=== PATIENT | female | born 1945 | race African-American/Black ===

== ENCOUNTER 2022-07-02 13:16 | Inpatient (IN) | payer OTHER ==
[2022-07-02 14:42] VITALS: BMI 24.3
[2022-07-02] MEDS ORDERED: POLYETHYLENE GLYCOL (HEALTHYLAX) 3350 17 GM PACKET PO PRN (15:37)
[2022-07-02] MEDS ORDERED: BENZONATATE 200 MG CAPSULE PO PRN (15:37)
[2022-07-02] MEDS ORDERED: BENZOCAINE/MENTHOL (CHLORASEPTIC ) LOZENGE MM PRN (15:37)
[2022-07-02] MEDS ORDERED: AMMONIUM LACTATE 12% LOTION 225 GM BOTTLE TP PRN (15:37)
[2022-07-02] MEDS ORDERED: IBUPROFEN 400 MG TABLET (FP) PO PRN (15:37)
[2022-07-02] MEDS ORDERED: NALOXONE HCL (KLOXXADO) 8 MG SPRAY NS PRN (15:37)
[2022-07-02] MEDS ORDERED: MAGNESIUM HYDROX 2400MG/30ML ORAL SUSPENSION 30 ML CUP PO PRN (15:37)
[2022-07-02] MEDS ORDERED: COLLOIDAL OATMEAL 1 BAR EACH TP PRN (15:37)
[2022-07-02] MEDS ORDERED: NICOTINE POLACRILEX 2 MG GUM BUC PRN (15:37)
[2022-07-02] MEDS ORDERED: LOPERAMIDE HCL 2 MG CAPSULE PO PRN (15:37)
[2022-07-02] MEDS ORDERED: MAG HYDROX/AL HYDROX/SIMETH 30 ML UNIT-DOSE CUP PO PRN (15:37)
[2022-07-02] MEDS ORDERED: BISMUTH SUBSALICYLATE 524 MG/30 ML PO PRN (15:37)
[2022-07-02] MEDS ORDERED: NALOXONE HCL 0.4 MG/ML VIAL IM PRN (15:37)
[2022-07-02] MEDS ORDERED: ONDANSETRON *ODT* 4 MG TABLET SL PRN (15:37)
[2022-07-02] MEDS ORDERED: guaiFENesin 600 MG TABLET.ER (FP) PO PRN (15:37)
[2022-07-02] MEDS ORDERED: DICYCLOMINE HCL 10 MG CAPSULE PO PRN (15:37)
[2022-07-02] MEDS ORDERED: NICOTINE 10 MG CARTRIDGE (INHALER) IH PRN (15:37)
[2022-07-02] MEDS ORDERED: IBUPROFEN 600 MG TABLET (FP) PO PRN (15:37)
[2022-07-02] MEDS ORDERED: NICOTINE 14 MG/24 HOURS TOPICAL PATCH TD SCH (15:45)
[2022-07-02] MEDS ORDERED: LORazepam 2 MG TABLET ONE (16:53)
[2022-07-02] MEDS: LORazepam 2 MG TABLET PO SCH ×2 (16:55→22:52)
[2022-07-02] MEDS: MELATONIN 5 MG TABLETS PO SCH (22:52)
[2022-07-02] MEDS: THIAMINE HCL 100 MG TABLET (FP) PO SCH (22:52)
[2022-07-03] MEDS: LORazepam 2 MG TABLET PO SCH ×4 (05:55→22:57)
[2022-07-03] MEDS: NICOTINE 14 MG/24 HOURS TOPICAL PATCH TD SCH ×2 (07:56→10:13)
[2022-07-03] MEDS: PRENATAL VITAMINS W/ FOLIC ACID TABLET (FP) PO SCH (10:13)
[2022-07-03] MEDS: ASPIRIN 81 MG CHEWABLE TABLETS PO SCH (10:13)
[2022-07-03] MEDS: ALBUTEROL SO4 HFA INHALER IH PRN ×3 (10:57→22:57)
[2022-07-03 11:22] LABS: POTASSIUM 4.2 mmol/L (3.5-5.1)
[2022-07-03 11:28] LABS: CALCIUM 9.4 mg/dL (8.5-10.1)
[2022-07-03 11:29] LABS: ALBUMIN 2.7 g/dl (3.4-5.0)
[2022-07-03 11:30] LABS: CREATININE 1.1 mg/dL (0.55-1.3)
[2022-07-03 11:32] LABS: TOT PROT 6.4 g/dl (6.4-8.2)
[2022-07-03 11:35] LABS: BILIRUBIN,TOTAL 0.8 mg/dL (0.2-1)
[2022-07-03 11:48] LABS: HEMATOCRIT 35.5 % (32.4-45.2); HEMOGLOBIN 11.4 GM/dL (10.7-15.3); MCH 27.6 pg (25.7-33.7); MCHC 32.1 g/dl (32.0-36.0); MEAN CELL VOLUME 85.9 fl (80-96); MEAN PLT VOLUME 10.1 fl (7.5-11.1); PLATELET COUNT 172 10^3/uL (134-434); RBC 4.13 M/mm3 (3.60-5.2); RDW 14.3 % (11.6-15.6); WHITE BLOOD COUNT 7.3 K/mm3 (4.0-10.0)
[2022-07-03] MEDS: RIVAROXABAN 20 MG TABLET PO SCH (17:49)
[2022-07-03] MEDS: THIAMINE HCL 100 MG TABLET (FP) PO SCH (21:42)
[2022-07-03] MEDS: MELATONIN 5 MG TABLETS PO SCH (21:43)
[2022-07-04] MEDS: LORazepam 1 MG TABLET PO SCH ×4 (06:16→22:02)
[2022-07-04] MEDS: ALBUTEROL SO4 HFA INHALER IH PRN ×2 (06:36→17:53)
[2022-07-04] MEDS: ACETAMINOPHEN 325 MG TABLET (FP) PO PRN (08:30)
[2022-07-04] MEDS: NICOTINE 14 MG/24 HOURS TOPICAL PATCH TD SCH (10:03)
[2022-07-04] MEDS: PRENATAL VITAMINS W/ FOLIC ACID TABLET (FP) PO SCH (10:04)
[2022-07-04] MEDS: ASPIRIN 81 MG CHEWABLE TABLETS PO SCH (10:04)
[2022-07-04] MEDS: RIVAROXABAN 20 MG TABLET PO SCH (17:53)
[2022-07-04] MEDS: MELATONIN 5 MG TABLETS PO SCH (22:02)
[2022-07-04] MEDS: THIAMINE HCL 100 MG TABLET (FP) PO SCH (22:02)
[2022-07-05] MEDS: LORazepam 0.5 MG TABLET PO SCH ×4 (06:15→22:36)
[2022-07-05] MEDS: ASPIRIN 81 MG CHEWABLE TABLETS PO SCH (11:01)
[2022-07-05] MEDS: PRENATAL VITAMINS W/ FOLIC ACID TABLET (FP) PO SCH (11:02)
[2022-07-05] MEDS: NICOTINE 14 MG/24 HOURS TOPICAL PATCH TD SCH (11:03)
[2022-07-05] MEDS: RIVAROXABAN 20 MG TABLET PO SCH (17:46)
[2022-07-05] MEDS: THIAMINE HCL 100 MG TABLET (FP) PO SCH (22:35)
[2022-07-05] MEDS: MELATONIN 5 MG TABLETS PO SCH (22:36)
[2022-07-05] MEDS: ACETAMINOPHEN 325 MG TABLET (FP) PO PRN (22:36)
[2022-07-06] MEDS ORDERED: LORazepam 0.5 MG TABLET PO ONE (05:00)
[2022-07-06 06:37] VITALS: RESP 17
[2022-07-06 09:58] VITALS: BP 113/62; PULSE 78; TEMP 96.9
[2022-07-06] MEDS: ASPIRIN 81 MG CHEWABLE TABLETS PO SCH (10:16)
[2022-07-06] MEDS: PRENATAL VITAMINS W/ FOLIC ACID TABLET (FP) PO SCH (10:16)
[2022-07-06] MEDS: NICOTINE 14 MG/24 HOURS TOPICAL PATCH TD SCH (10:16)
== END 2022-07-06 14:08 | disposition home or self-care (01) | DRG 897 ==
LOC: YASAS 13:16 → Y3N 15:51
PROVIDERS: ADMIT Allergy & Immunology; ATTEND Surgery
PROC: HZ2ZZZZ Detoxification Services for Substance Abuse Treatment (ICD-10-PCS; principal; 2022-07-02)
DX: F10.230 Alcohol dependence with withdrawal, uncomplicated (principal); F17.210 Nicotine dependence, cigarettes, uncomplicated; G47.00 Insomnia, unspecified; E78.5 Hyperlipidemia, unspecified; I25.10 Atherosclerotic heart disease of native coronary artery without angina pectoris; I10 Essential (primary) hypertension; I48.91 Unspecified atrial fibrillation; Z79.01 Long term (current) use of anticoagulants; J44.9 Chronic obstructive pulmonary disease, unspecified; Z91.81 History of falling; S01.01XD Laceration without foreign body of scalp, subsequent encounter; X58.XXXD Exposure to other specified factors, subsequent encounter
CPT/HCPCS: 36415; 80053; 82140; 85027; 86780; 87811; C9803-CS; U0003; U0005